=== PATIENT | male | born 1995 | race Caucasian/White ===

== ENCOUNTER 2017-06-09 12:50 | Emergency (ER) | payer BC ==
[~2017-06-09] VITALS: Ht 177.8 cm; Wt 83.2 kg
[2017-06-09 12:57] VITALS: Ht 177.8 cm; Wt 83.2 kg
[2017-06-09] MEDS ORDERED: SODIUM CHLORIDE 0.9% 1000ML 1,000 ML IV ONE (13:30)
--- NOTE | 2017-06-09 13:32 | EMERGENCY ROOM VISIT NOTE ---
History First contact with patient: 13:17 Chief Complaint: FLU LIKE SX Stated Complaint: GUZMÁN, STOMACH PAIN, SORE NECK/MUSCLES, DIARRHEA History of Present Illness The patient is a 21 year old male who presents to the Emergency Room with complaints of fever and diarrhea for the last 4 days. The fever was as high as 102F. He denies any blood in his stool. He has had mild nausea and abdominal cramping. He denies any respiratory symptoms. He has had a headache and body aches. He has been taking Tylenol with temporary relief of his discomfort. No recent antibiotic use or travel. His roommate was sick with similar symptoms. Review of Systems 10 system review performed and negative unless noted in HPI or below Past Medical/Surgical History Otherwise healthy Social History Smoking Status: Never Smoker Alcohol Use: occasionally Occupation Status: [employer] student Current/Historical Medications Scheduled Dicyclomine Hcl (Bentyl), 20 MG PO Q8 Physical Exam Vital Signs Date Time Temp Pulse Resp B/P (MAP) Pulse Ox O2 Delivery O2 Flow Rate FiO2 06/09/17 16:03 36.6 88 18 121/67 99 06/09/17 15:42 88 18 121/67 99 Room Air 06/09/17 12:57 36.6 88 18 119/65 97 Room Air Physical Exam VITALS: Vitals are noted on the nurse's note and reviewed by myself. Vital signs stable. GENERAL: He-year-old male, in no acute distress, nondiaphoretic, well-developed well-nourished. SKIN: The skin was without rashes, erythema, edema, or bruising. HEAD: Normocephalic atraumatic. EYES: . Conjunctivae without injection, sclerae without icterus. Extraocular movements intact. MOUTH: Mucous membranes slightly dry. Tonsils are not enlarged. Pharynx without erythema or exudate. Uvula midline. Airway patent. Tongue does not deviate. NECK: Supple without nuchal rigidity. Lymphadenopathy noted in the posterior cervical chain bilaterally. Cervical spine is nontender. No JVD. HEART: Regular rate and rhythm without murmurs gallops or rubs. LUNGS: Clear to auscultation bilaterally without wheezes, rales or rhonchi. No accessory muscle use. ABDOMEN: Positive bowel sounds x 4.Soft, nontender, without organomegaly. No guarding or rebound tenderness. MUSCULOSKELETAL: No muscle atrophy, erythema, or edema noted.. Strength 5/5 throughout. NEURO: Patient was alert and oriented to person place and time. Normal sensation to touch. No focal neurological deficits. Medical Decision & Procedures ER Provider Diagnostic Interpretation: Abdominal films Patient Name: BRY MYERS Unit Number: [id number] Dictated: 06/09/171533 Transcribed: 06/09/171533 JRB Printed Date/Time: [~ rep prt dt]/[~ rep prt tm] [~ rep ct labl] - [~ rep ct ivnm] [facility] [place] [address] Dictated: 06/09/171533 Transcribed: 06/09/171533 JRB Printed Date/Time: [~ rep prt dt]/[~ rep prt tm] [~ rep ct labl] - [~ rep ct ivnm] IMPRESSION: 1. Nonobstructive bowel gas pattern. 2. Scattered air-fluid levels within bowel of the left upper and right lower abdomen are nonspecific. Differential considerations would include enteritis and/or diarrheal state or ileus. 3. No acute cardiopulmonary process. The above report was generated using voice recognition software. It may contain grammatical, syntax or spelling errors. Electronically signed by: Samuel Lucas M.D. 06/09/2017 3:37 PM Dictated Date/Time: 06/09/2017 3:34 PM The status of this report is Signed. Draft = Not yet reviewed or approved by Radiologist. Signed = Reviewed and approved by Radiologist. <AttendingPhy></AttendingPhy> <FamilyPhy>[facility]</FamilyPhy> <PrimaryPhy>[facility]</PrimaryPhy> <UnitNumber>[id number]</ UnitNumber> <VisitNumber>[id number]</VisitNumber> <PatientName>BRY MYERS</ PatientName> <DateOfBirth>1995</DateOfBirth> <Location>[facility]</Location> < ServiceDate>06/09/17</ServiceDate> <MNE>ESINDI</MNE> <OrderingPhy>Soniya Fraire PA-C</OrderingPhy> <OrderingPhyMNE>f rep ord dr childerse</OrderingPhyMNE> < DictatingPhyMNE>f rep dict mne</DictatingPhyMNE> <CCListMNE>f rep ct mne</ CCListMNE> <AdmittingPhyMNE>f pt admit dr elena</AdmittingPhyMNE> <AttendingPhyMNE >f pt attend dr elena</AttendingPhyMNE> <ConsultingPhyMNE>f pt consult dr elena</ConsultingPhyMNE> <FamilyPhyMNE>f pt fam dr elena</FamilyPhyMNE> <OtherPhyMNE>f pt other dr elena</OtherPhyMNE> < PrimaryPhyMNE>f pt prim care dr elena</PrimaryPhyMNE> <ReferringPhyMNE>f pt referring dr elena</ReferringPhyMNE> Laboratory Results 06/09/17 13:20 Red Blood Count 4.73, Mean Corpuscular Volume 91.8, Mean Corpuscular Hemoglobin 31.1, Mean Corpuscular Hemoglobin Concent 33.9, Mean Platelet Volume 9.8, Neutrophils (%) (Auto) 69.7, Lymphocytes (%) (Auto) 12.7, Monocytes (%) (Auto) 17.1, Eosinophils (%) (Auto) 0.1, Basophils (%) (Auto) 0.1, Neutrophils # (Auto ) 6.11, Lymphocytes # (Auto) 1.11, Monocytes # (Auto) 1.50, Eosinophils # (Auto ) 0.01, Basophils # (Auto) 0.01 06/09/17 13:20 Test 06/09/17 13:20 06/09/17 13:30 06/09/17 16:00 White Blood Count 8.77 K/uL (4.8-10.8) Red Blood Count 4.73 M/uL (4.7-6.1) Hemoglobin 14.7 g/dL (14.0-18.0) Hematocrit 43.4 % (42-52) Mean Corpuscular Volume 91.8 fL (80-100) Mean Corpuscular Hemoglobin 31.1 pg (25-34) Mean Corpuscular Hemoglobin Concent 33.9 g/dl (32-36) Platelet Count 148 K/uL (130-400) Mean Platelet Volume 9.8 fL (7.4-10.4) Neutrophils (%) (Auto) 69.7 % Lymphocytes (%) (Auto) 12.7 % Monocytes (%) (Auto) 17.1 % Eosinophils (%) (Auto) 0.1 % Basophils (%) (Auto) 0.1 % Neutrophils # (Auto) 6.11 K/uL (1.4-6.5) Lymphocytes # (Auto) 1.11 K/uL (1.2-3.4) Monocytes # (Auto) 1.50 K/uL (0.11-0.59) Eosinophils # (Auto) 0.01 K/uL (0-0.5) Basophils # (Auto) 0.01 K/uL (0-0.2) RDW Standard Deviation 41.9 fL (36.4-46.3) RDW Coefficient of Variation 12.5 % (11.5-14.5) Immature Granulocyte % (Auto) 0.3 % Immature Granulocyte # (Auto) 0.03 K/uL (0.00-0.02) Anion Gap 5.0 mmol/L (3-11) Est Creatinine Clear Calc Drug Dose 95.8 ml/min Estimated GFR () 93.6 Estimated GFR (Non- 80.8 BUN/Creatinine Ratio 9.1 (10-20) Calcium Level 8.7 mg/dl (8.5-10.1) Magnesium Level 1.9 mg/dl (1.8-2.4) Total Bilirubin 0.5 mg/dl (0.2-1) Aspartate Amino Transf (AST/SGOT) 23 U/L (15-37) Alanine Aminotransferase (ALT/SGPT) 30 U/L (12-78) Alkaline Phosphatase 67 U/L (45-117) Total Protein 7.4 gm/dl (6.4-8.2) Albumin 3.7 gm/dl (3.4-5.0) Globulin 3.7 gm/dl (2.5-4.0) Albumin/Globulin Ratio 1.0 (0.9-2) Influenza Type A (RT-PCR) Neg for Influ A (NEG) Influenza Type B (RT-PCR) Neg for Influ B (NEG) Urine Color YELLOW Urine Appearance CLEAR (CLEAR) Urine pH 5.5 (4.5-7.5) Urine Specific [place] 1.012 (1.000-1.030) Urine Protein NEG (NEG) Urine Glucose (UA) NEG (NEG) Urine Ketones NEG (NEG) Urine Occult Blood NEG (NEG) Urine Nitrite NEG (NEG) Urine Bilirubin NEG (NEG) Urine Urobilinogen NEG (NEG) Urine Leukocyte Esterase NEG (NEG) Medications Administered Medications (Trade) Dose Ordered Sig/Shilpa Route Start Time Stop Time Status Last Admin Dose Admin Sodium Chloride 1,000 ml @ 999 mls/hr Q1H1M ONCE IV 06/09/17 13:30 06/09/17 14:30 DC 06/09/17 13:40 999 MLS/HR ED Course Patient was seen and examined Vital signs including blood pressure were reviewed medications list was verified with patient Labs were obtained, and a saline lock was established The patient declined pain medication. He was hydrated with 1 L of normal saline. Imaging was performed and reviewed The findings were discussed with the patient and the patient's mother. They voiced understanding. He was feeling better. The patient was unable to provide a stool sample. I reviewed discharge instructions the patient. They voiced understanding and had no further questions. Medical Decision Differential diagnosis: Viral GI illness, food borne illness/bacterial GI illness, colitis, bowel obstruction, influenza This patient is a 21-year-old male that presents emergency department with a fever and diarrhea. On exam, he was nontoxic in appearance. He is afebrile. His abdomen was benign. His labs reveal no leukocytosis. He was unable to provide a stool sample. I do not have a high suspicion of bacterial infection. I believe he likely has a viral GI illness. The patient was hydrated with IV fluids. I believe he is stable to be discharged home. He'll be given a prescription for Bentyl. He was instructed to increase fluids over the next several days and rest. He and his mother are comfortable with this plan. This chart was completed in part utilizing [employer] Speech Voice Recognition software. Attempts were made to minimize the grammatical errors, random word insertions, pronoun errors and incomplete sentences. Any formal questions or concerns about the content, text or information contained within the body of this dictation should be directly addressed to the provider for clarification. Impression Primary Impression: Diarrhea Departure Information Dispostion Home / Self-Care Condition GOOD Prescriptions Dicyclomine Hcl (BENTYL) 20 Mg Tab 20 MG PO Q8 for abdominal pain, #12 TAB Prov: Urban, Soniya P., PA-C 06/09/17 Referrals No Doctor, Assigned (PCP) Patient Instructions My [facility] Additional Instructions He were seen in the emergency department today for a fever and diarrhea. This is likely due to a viral GI illness. It is very important to stay well-hydrated. Please increase your fluids, particularly with sports drinks such as Gatorade. Please take Bentyl 1 tab every 8 hours as needed for abdominal pain/cramping Please follow-up with your primary care physician for a recheck this week. Do not hesitate to return to the emergency department with any new, worsening or concerning symptoms
[2017-06-09 13:37] LABS: BASO % 0.1 %; BASO ABS # 0.01 K/uL (0-0.2); COMPLETE YES; EOS % 0.1 %; HEMATOCRIT 43.4 % (42-52); IG% 0.3 %; LYMPH % 12.7 %; LYMPH ABS # 1.11 K/uL (1.2-3.4); MEAN CELL VOLUME 91.8 fL (80-100); MEAN CORPUSCULAR HEMOGLOBIN 31.1 pg (25-34); MEAN CORPUSCULAR HGB CONC 33.9 g/dl (32-36); MEAN PLATELET VOLUME 9.8 fL (7.4-10.4); MONO % 17.1 %; NEUT % 69.7 %; PLATELET COUNT 148 K/uL (130-400); RED BLOOD COUNT 4.73 M/uL (4.7-6.1); WHITE BLOOD COUNT 8.77 K/uL (4.8-10.8)
[2017-06-09 13:55] LABS: BUN/CREATININE RATIO 9.1 (10-20); CALCIUM 8.7 mg/dl (8.5-10.1); CREATININE 1.27 mg/dl (0.60-1.40); MAGNESIUM 1.9 mg/dl (1.8-2.4); POTASSIUM 4.1 mmol/L (3.5-5.1)
[2017-06-09 14:34] LABS: INFLUENZA A PCR Neg for Influ A (NEG); INFLUENZA B PCR Neg for Influ B (NEG)
--- NOTE | 2017-06-09 15:38 | DIAGNOSTIC IMAGING REPORT ---
ABDOMEN 2VIEW W/PA CHEST RTN HISTORY: 21 years-old Male fever diarrhea acute fever with diarrhea and dizziness COMPARISON: None available TECHNIQUE: PA view the chest with erect and supine views of the abdomen FINDINGS: Cardiac mediastinal and hilar silhouettes are within normal limits. No pneumothorax, pleural effusion, focal airspace consolidation or overt pulmonary edema. Bones of the chest are grossly intact. Air-fluid levels are noted within bowel of the right lower and left upper quadrants which may be large bowel. The bowel gas pattern is nonobstructive. No urolith or organomegaly. No fracture identified. IMPRESSION: 1. Nonobstructive bowel gas pattern. 2. Scattered air-fluid levels within bowel of the left upper and right lower abdomen are nonspecific. Differential considerations would include enteritis and/or diarrheal state or ileus. 3. No acute cardiopulmonary process. The above report was generated using voice recognition software. It may contain grammatical, syntax or spelling errors. Electronically signed by: Samuel Lucas M.D. 06/09/2017 3:37 PM Dictated Date/Time: 06/09/2017 3:34 PM
[2017-06-09] MEDS ORDERED: DICY20TA35 PO (16:00)
[2017-06-09 16:03] VITALS: BP 121/67; PULSE 88; TEMP 36.6; O2SAT 99
[2017-06-09 16:21] LABS: MANUAL MICROSCOPIC REQUIRED? NO; REVIEW REQ? NO; URINE APPEARANCE CLEAR (CLEAR); URINE BILIRUBIN NEG (NEG); URINE COLOR YELLOW; URINE NITRITE NEG (NEG); URINE PH 5.5 (4.5-7.5); URINE SPECIFIC GRAVITY 1.012 (1.000-1.030); UROBILINOGEN NEG (NEG)
== END 2017-06-09 16:03 | disposition home or self-care (01) ==
LOC: C.EDB 12:53 → C.EDC 16:03
DX: R19.7 Diarrhea, unspecified (principal)